=== PATIENT | male | born 1995 | race African-American/Black ===

== ENCOUNTER 2017-03-05 13:48 | Emergency (ER) | payer MEDICAID ==
[~2017-03-05] VITALS: Ht 175.3 cm; Wt 122.0 kg
[~2017-03-05 13:48] MED LIST: AMPH20TA3; DIPH50CA20; DIVA-18; DIVA250T4; OXYCARBAZEPINE
[2017-03-05] MEDS ORDERED: LIDOCAINE HCL 1%/EPI 1:200,000 30 ML VIAL MC ONE (15:00)
[2017-03-05] MEDS ORDERED: ONDANSETRON 4MG ODT PO ONE (15:15)
[2017-03-05] MEDS ORDERED: MORPHINE SULFATE 10 MG/ML CPJ IM ONE (15:15)
[2017-03-05 16:52] VITALS: BP 107/49
== END 2017-03-05 16:53 | disposition home or self-care (01) ==
LOC: ER 14:28
DX: S01.01XA Laceration without foreign body of scalp, initial encounter (principal); S01.311A Laceration without foreign body of right ear, initial encounter; F90.9 Attention-deficit hyperactivity disorder, unspecified type; F12.10 Cannabis abuse, uncomplicated; Z88.1 Allergy status to other antibiotic agents; Y09 Assault by unspecified means; Y93.89 Activity, other specified; Y92.89 Other specified places as the place of occurrence of the external cause; Y99.8 Other external cause status
CPT/HCPCS: 12001; 12011; 70450; 96372; 99284; J2270; Q0162; X7700; Z7610

== ENCOUNTER 2017-03-12 11:01 | Emergency (ER) | payer MEDICAID ==
[~2017-03-12] VITALS: Ht 175.3 cm; Wt 118.0 kg
[2017-03-12 11:02] VITALS: BP 127/61
== END 2017-03-12 11:54 | disposition home or self-care (01) ==
LOC: ER 11:01
DX: Z48.02 Encounter for removal of sutures (principal); X58.XXXD Exposure to other specified factors, subsequent encounter; Z88.1 Allergy status to other antibiotic agents; F12.10 Cannabis abuse, uncomplicated
CPT/HCPCS: 99281; Z7610